=== PATIENT | female | born 1975 | race African-American/Black ===

== ENCOUNTER 2022-10-26 22:46 | Emergency (ER) | payer OTHER ==
[~2022-10-26] VITALS: Ht 167.6 cm; Wt 92.1 kg
[~2022-10-26 22:46] MED LIST: ACET-2708 MT; CEPH500T MT; IBUP-1525 MT
[2022-10-26 23:04] VITALS: BP 180/96; O2SAT 99
[2022-10-27] MEDS ORDERED: BACITRACIN ZINC OINT UDPKT TOP ONE
[2022-10-27 00:06] VITALS: PULSE 95; RESP 16; TEMP 98.7
== END 2022-10-27 | disposition home or self-care (01) ==
LOC: ER 22:46
DX: Z48.00 Encounter for change or removal of nonsurgical wound dressing (principal)
CPT/HCPCS: 99282

== ENCOUNTER 2022-11-05 18:41 | Emergency (ER) | payer OTHER ==
[~2022-11-05] VITALS: Ht 170.2 cm; Wt 92.0 kg
[2022-11-05 18:45] VITALS: O2SAT 100
[2022-11-05] MEDS ORDERED: CEFTRIAXONE 1GM PREMIX 50 ML IV ONE (22:00)
[2022-11-05 22:43] LABS: CLARITY URINE CLOUDY (CLEAR); COLOR URINE YELLOW (YELLOW); KETONES URINE NEGATIVE (NEGATIVE); LEUKOCYTE ESTERASE URINE NEGATIVE (NEGATIVE); NITRITE URINE NEGATIVE (NEGATIVE); OCCULT BLOOD URINE NEGATIVE (NEGATIVE); PROTEIN URINE NEGATIVE (NEGATIVE); SPECIFIC GRAVITY URINE 1.019 (1.005-1.030)
[2022-11-05] MEDS ORDERED: SODIUM CHLORIDE 0.9% 1,000 ML IV ONE (23:15)
[2022-11-05] MEDS ORDERED: VANCOMYCIN 1G PREMIX 200 ML IV ONE (23:15)
[2022-11-06 00:24] LABS: BASOPHILS % 0.3 % (0.0-2.0); EOSINOPHILS % 5.3 % (0.0-5.0); HEMATOCRIT. 40.8 % (36.0-48.0); HEMOGLOBIN. 13.6 g/dL (12.0-16.0); LYMPHOCYTES % 27.9 % (20.0-50.0); MEAN CORPUSCULAR HEMOGLOBIN 28.2 pg (28.0-32.0); MEAN CORPUSCULAR VOLUME 84.5 fL (81.0-99.0); MEAN PLATELET VOLUME 8.5 fl (7.4-10.4); MONOCYTES % 6.1 % (2.0-8.0); NEUTROPHILS % 60.4 % (40.0-76.0); PLATELET 224 x1000/uL (130-400); RED BLOOD CELL COUNT 4.83 mill/uL (4.2-5.4); RED CELL DISTRIBUTION WIDTH 13.3 % (11.6-14.6)
[2022-11-06 00:28] LABS: CHLORIDE 110 mEq/L (98-107)
[2022-11-06 00:35] LABS: HCG SCREEN NEGATIVE
[2022-11-06] MEDS ORDERED: BO1 TP (04:46)
[2022-11-06] MEDS ORDERED: NAPR-681 PO (04:46)
[2022-11-06] MEDS ORDERED: SULF1TAB48 MT (04:46)
[2022-11-06] MEDS ORDERED: AMOX1TAB16 PO (04:46)
[2022-11-06 07:42] VITALS: BP 167/70; PULSE 81; RESP 20; TEMP 98.2
== END 2022-11-06 07:44 | disposition home or self-care (01) ==
LOC: ER 19:13
DX: S62.522B Displaced fracture of distal phalanx of left thumb, initial encounter for open fracture (principal); X58.XXXA Exposure to other specified factors, initial encounter; Y93.89 Activity, other specified; Y92.89 Other specified places as the place of occurrence of the external cause; Y99.8 Other external cause status
CPT/HCPCS: 99284; 96365; 81003; 81025; 36415; 73140; 96375; 80053; 84703; 85025; 87040; J0696; J7030; J3370

== ENCOUNTER 2022-11-09 20:47 | Emergency (ER) | payer OTHER ==
[~2022-11-09] VITALS: Ht 170.2 cm; Wt 93.0 kg
[~2022-11-09 20:47] MED LIST changes: +AMOX1TAB16 PO; +BO1 TP; +NAPR-681 PO; +SULF1TAB48 MT
[2022-11-09 20:49] VITALS: BP 156/96; PULSE 90; RESP 18; TEMP 98.4; O2SAT 100
[2022-11-09] MEDS ORDERED: BACITRACIN ZINC OINT UDPKT TOP ONE (21:30)
== END 2022-11-09 22:25 | disposition home or self-care (01) ==
LOC: ER 20:47
DX: Z48.02 Encounter for removal of sutures (principal); Z79.899 Other long term (current) drug therapy
CPT/HCPCS: 99282